=== PATIENT | female | born 1970 | race Caucasian/White ===

== ENCOUNTER 2025-01-14 07:26 | Day surgery (SDC) | payer OTHER ==
[2025-01-07 14:53] VITALS: BMI 28.7
[2025-01-14] MEDS ORDERED: oxyCODONE HCL 5 MG TABLET PO PRN ×2 (07:54)
[2025-01-14] MEDS ORDERED: LACTATED RINGERS SOLUTION 1,000 ML IV SCH (08:00)
[2025-01-14] MEDS ORDERED: ONDANSETRON 4 MG/2 ML VIAL ONE ×3 (08:22→13:12)
[2025-01-14] MEDS ORDERED: PROPOFOL 20 ML ONE (08:22)
[2025-01-14] MEDS ORDERED: DEXAMETHASONE SOD PHOSPHATE 4 MG/1 ML VIAL ONE (08:22)
[2025-01-14] MEDS ORDERED: ceFAZolin SODIUM 1 GM VIAL ONE (08:22)
[2025-01-14] MEDS ORDERED: MIDAZOLAM HCL 2 MG/2 ML SINGLE DOSE VIAL ONE (08:22)
[2025-01-14] MEDS ORDERED: ROPIVACAINE HCL/PF 100 MG/20 ML VIAL ONE (08:46)
[2025-01-14] MEDS ORDERED: ACETAMINOPHEN INJECTION 100 ML ONE (08:46)
[2025-01-14] MEDS ORDERED: BUPIVACAINE HCL/PF 0.25% (2.5MG/ML) 10 ML VIAL ONE (08:57)
[2025-01-14] MEDS ORDERED: FENTANYL CITRATE/PF 50 MCG/ML VIAL ONE ×2 (11:47→12:08)
[2025-01-14] MEDS ORDERED: KETOROLAC TROMETHAMINE 30 MG/1 ML VIAL ONE (11:52)
[2025-01-14] MEDS: ONDANSETRON 4 MG/2 ML VIAL IVPUSH PRN (12:00)
[2025-01-14] MEDS: KETOROLAC TROMETHAMINE 30 MG/1 ML VIAL IVPUSH ONE (12:05)
[2025-01-14] MEDS ORDERED: PROMETHAZINE HCL 25 MG/1 ML VIAL IVPB PRN (12:17)
[2025-01-14 13:08] VITALS: RESP 18; TEMP 97.1
[2025-01-14 14:03] VITALS: BP 122/68; PULSE 72
== END 2025-01-14 12:10 | disposition home or self-care (01) ==
LOC: FASU 07:26
PROVIDERS: ATTEND Orthopaedic Surgery Sports Medicine
PROC: 0RNJ4ZZ Release Right Shoulder Joint, Percutaneous Endoscopic Approach (ICD-10-PCS; principal; 2025-01-14 10:41)
DX: M75.111 Incomplete rotator cuff tear or rupture of right shoulder, not specified as traumatic (principal); M75.51 Bursitis of right shoulder; M65.811 Other synovitis and tenosynovitis, right shoulder
CPT/HCPCS: 94760; J0131